=== PATIENT | male | born 2000 | race Caucasian/White ===

== ENCOUNTER 2019-03-18 18:24 | Emergency (ER) | payer OTHER, BC | END 2019-03-18 21:27 | disposition home or self-care (01) | LOC: FTE 18:24 | DX: M54.5 Low back pain (principal); M79.652 Pain in left thigh; R93.0 Abnormal findings on diagnostic imaging of skull and head, not elsewhere classified | CPT/HCPCS: 70450; 72100; 73510; 99284-25 ==